=== PATIENT | female | born 1990 | race Caucasian/White ===

== ENCOUNTER 2025-06-24 09:24 | Emergency (ER) | payer OTHER, SELFPAY ==
--- NOTE | ~2025-06-24 | XR_ITS ---
EXAM/ PROCEDURE: XR ankle RT min 3V, XR foot RT min 3V - 06/24/2025 10:45 CDT HISTORY: 35 years old Female with pain swelling abd bruising, running injury, pain x 3 days COMPARISON: None available TECHNIQUE: Three view(s) each FINDINGS/ IMPRESSION: There are no fractures or dislocations.Joint spaces are within normal limits. Reviewed, dictated and finalized at location N.
[2025-06-24 10:06] VITALS: BP 103/70; PULSE 62; RESP 16; TEMP 36.6; O2SAT 100
--- NOTE | 2025-06-24 10:22 | ED_ITS ---
HPI - Extremity Injury (Lower) General Chief Complaint: Extremity Injury, Lower Stated Complaint: r ankle pain Time Seen by Provider: 06/24/25 10:22 Source: patient and RN notes reviewed Mode of arrival: ambulatory Limitations: no limitations History of Present Illness HPI Narrative: 35-year-old female presents to the [facility] with right lateral ankle pain, right lateral foot pain since Monday. States that she was running and rolled her ankle, falling. Significant bruising noted to the lateral aspect of the lower leg, ankle and foot. Tenderness along the 5th metatarsal Swelling lateral malleolus Onset (ago): day(s) (3) Treatments prior to arrival: NSAIDS Related Data Home Medications ?Medication ?Instructions ?Recorded ?Confirmed ?Last Taken ?Type alprazolam 0.5 mg tablet mg 06/24/25 Unknown History Allergies Allergy/AdvReac Type Severity Reaction Status Date / Time No Known Allergies Allergy Verified 06/24/25 11:01 Review of Systems Review of Systems: All systems reviewed & are unremarkable except as noted in HPI and below Constitutional: Constitutional: Reports no additional constitutional complaints Musculoskeletal: Musculoskeletal: Reports as per HPI and Reports arthralgias PMFSH Comments At the time of my signature, I reviewed and agree with the nursing past medical, surgical, social, and family history. There is no relevant family history pertinent to the patient complaint. Exam Const: General: cooperative, healthy appearing, comfortable, no acute distress, well developed, alert and well nourished Nutritional Appearance: well nourished Orientation/consciousness: patient oriented x3 Limitations: no limitations HENMT: Head: normal to inspection Eyes: General: appearance normal, both eyes and all related structures Alignment and Position: alignment normal Neck: Neck: normal visual inspection, full ROM, no lymphadenopathy and no meningeal signs Chest: Chest palpation & inspection: normal inspection of the chest Resp: Effort & Inspection: normal respiratory effort and able to speak in complete sentences Cardio: Rate: regular rate Skin: General skin exam: normal color and no rashes or lesions noted Neuro: General: patient oriented x3, moves all extremities and no meningeal signs Cognition (Neuro): normal cognition Speech: normal speech Gait exam (Neuro): Normal gait present Extrem: General: normal to inspection, full ROM, capillary refill normal and normal gait Right lower extremity: full ROM, normal capillary refill, lower leg Details: ecchymosis (Lower half, lateral), ankle Details: tenderness Location: of the lateral malleolus, swelling and ecchymosis (Lateral malleolus) and foot Details: normal capillary refill, tenderness (Lateral) Location: of the lateral foot, ecchymosis (Lateral) and vascular exam Details: dorsalis pedis pulse present and normal capillary refill; no foreign bodies and no puncture wound Psych: Appearance: grossly normal and well kempt Mental Status: mental status grossly normal Speech and movement: Normal speech and movement present and Clear speech present Affect: normal affect Attitude: cooperative Course Course Level of Care: Express Care Visit Vital Signs Vital signs: Vital Signs Temperature 98 F 06/24/25 10:06 Pulse Rate 62 06/24/25 10:06 Respiratory Rate 16 06/24/25 10:06 Blood Pressure 103/70 06/24/25 10:06 Pulse Oximetry 100 06/24/25 10:06 Temperature 98 F 06/24/25 10:06 Pulse Rate 62 06/24/25 10:06 Respiratory Rate 16 06/24/25 10:06 Blood Pressure 103/70 06/24/25 10:06 Pulse Oximetry 100 06/24/25 10:06 Reviewed MDM - Extremity Injury (Lower) MDM Narrative Medical decision making narrative: Patient sitting comfortably in exam. Patient is nontoxic, vitals stable. Patient presents with lateral ankle and foot pain. Injury 3 days ago X-ray with no acute fractures Patient appropriate for outpatient treatment with close follow-up Discharge instructions reviewed with patient, as well as provided in writing per nursing staff. The instructions also include specific and strict return/GO TO THE ER as well as f/u information. All questions have been answered, and the patient deny any further questions with discharge and discharge plan. Some parts of this dictation were generated by voice recognition software and may contain typographical and/or grammatical inaccuracies. Differential Diagnosis Differential diagnosis: Likely ankle sprain and strain, ankle fracture and other (Foot fracture) Imaging Data Radiologist's impression: EXAM/ PROCEDURE: XR ankle RT min 3V, XR foot RT min 3V - 06/24/2025 10:45 CDT HISTORY: 35 years old Female with pain swelling abd bruising, running injury, pain x 3 days COMPARISON: None available TECHNIQUE: Three view(s) each FINDINGS/ IMPRESSION: There are no fractures or dislocations.Joint spaces are within normal limits. Critical Care Time Critical Care Time Critical Care Time: No Discharge Plan Discharge Clinical Impression: Ankle sprain and strain Patient Disposition: Home Condition: Stable Instructions: Ankle Sprain (ED), Contusion in Adults (ED) Additional Instructions: Your Xray did not show a fracture. Wear good supportive shoes at all times. Ice should be applied to help reduce swelling. It can be used for 20 to 30 minutes, every 2-3 hours while awake. Do not apply ice directly to your skin. ankle braces or jose antonio-wraps will help support your injured ankle. You can alternate ibuprofen 600mg and Tylenol 650mg every 4 hours as needed for pain Please schedule a follow-up visit with your personal physician for further evaluation and treatment within 2 weeks especially if symptoms persist. For new or worsening symptoms go directly to the emergency room Patient Language: Syriac Prescriptions: No Action alprazolam 0.5 mg tablet Follow-up/Referrals: PHYSICIAN,E COMMERCE ANALYST [Primary Care Provider, Internal Medicine] Time of Disposition: 11:09
== END 2025-06-24 11:38 | disposition home or self-care (01) ==
PROVIDERS: Emergency Provider Nurse Practitioner
DX: S93.401A Sprain of unspecified ligament of right ankle, initial encounter (principal); S96.911A Strain of unspecified muscle and tendon at ankle and foot level, right foot, initial encounter; X50.9XXA Other and unspecified overexertion or strenuous movements or postures, initial encounter; Y93.02 Activity, running; F41.9 Anxiety disorder, unspecified
CPT/HCPCS: 73610; 73630; 99203; G0463